=== PATIENT | female | born 1995 | race Asian ===

== ENCOUNTER 2022-06-01 12:55 | Emergency (ER) | payer MEDICAID ==
[~2022-06-01] VITALS: Ht 162.6 cm; Wt 59.0 kg
[2022-06-01 13:00] VITALS: BP_SYST 124
[2022-06-01 13:30] VITALS: BP_SYST 124
[2022-06-01] MEDS ORDERED: CETI10CA11 PO (13:53)
[2022-06-01] MEDS ORDERED: CETI-80 PO (13:55)
== END 2022-06-01 14:20 | disposition home or self-care (01) ==
LOC: SED 12:55
DX: L50.0 Allergic urticaria (principal); Z91.013 Allergy to seafood; Z79.899 Other long term (current) drug therapy
CPT/HCPCS: 99282